=== PATIENT | female | born 1990 | race Caucasian/White ===

== ENCOUNTER 2023-04-10 06:57 | Emergency (ER) | payer BC, OTHER ==
[2023-04-10] MEDS: Ondansetron 4 MG Tab.DIS PO ONE (07:21)
[2023-04-10 07:35] LABS: BASOPHILS ABSOLUTE AUTO 0.01 K/uL (0.00-0.20); BASOPHILS PERCENT AUTO 0.1 % (0.0-2.0); EOSINOPHILS ABSOLUTE AUTO 0.02 K/uL (0.00-0.50); EOSINOPHILS PERCENT AUTO 0.2 % (0.0-5.0); HEMATOCRIT 34.4 % (34.0-46.0); HEMOGLOBIN 11.7 g/dL (11.7-15.5); LYMPHOCYTES ABSOLUTE AUTO 0.49 K/uL (0.50-3.50); LYMPHOCYTES PERCENT AUTO 4.3 % (10.0-50.0); MEAN CORPUSCULAR HEMOGLOBIN 30.2 pg (28.2-33.3); MEAN CORPUSCULAR VOLUME 88.7 fL (84.0-98.0); MONOCYTES ABSOLUTE AUTO 0.31 K/uL (0.00-1.00); MONOCYTES PERCENT AUTO 2.7 % (2.0-14.0); NEUTROPHILS ABSOLUTE AUTO 10.62 K/uL (1.40-7.00); NEUTROPHILS PERCENT AUTO 92.7 % (45.0-80.0); PLATELET COUNT,PLT 285 K/uL (150-350); RED BLOOD CELL COUNT 3.88 M/uL (3.77-5.09); RED CELL DISTRIBUTION WIDTH 12.7 % (11.2-14.1); WHITE BLOOD CELL COUNT,WBC 11.5 K/uL (4.0-10.2)
[2023-04-10 07:52] LABS: ALBUMIN 3.4 g/dL (3.4-5.0); ANION GAP 9.3 meq/L (7-15); BILIRUBIN TOTAL 0.5 mg/dL (0.2-1.0); CALCIUM 8.7 mg/dL (8.5-10.1); CARBON DIOXIDE,CO2 23.7 mmol/L (21.0-32.0); CREATININE 0.62 mg/dL (0.51-1.17); EST CRCL DRUG DOSING (CG) 133.62 mL/min; POTASSIUM,K 3.6 mmol/L (3.5-5.1); PROTEIN TOTAL,TP 7.2 g/dL (6.4-8.2)
[2023-04-10 08:15] LABS: CORONAVIRUS COVID-19 NAA NEGATIVE (NEGATIVE); INFLUENZA A NAA NEGATIVE (NEGATIVE); INFLUENZA B NAA NEGATIVE (NEGATIVE); RESPIRATORY SYNCYTIAL VIR NAA NEGATIVE (NEGATIVE)
[2023-04-10] MEDS: Ondansetron 4 MG/2 ML SDV IVPUSH ONE (08:15)
[2023-04-10] MEDS: Sodium Chloride 0.9% 10 ML Syringe FLUSH PRN (08:16)
== END 2023-04-10 08:37 | disposition home or self-care (01) ==
LOC: LL.ED 06:57
DX: O99.612 Diseases of the digestive system complicating pregnancy, second trimester (principal); A08.4 Viral intestinal infection, unspecified; Z3A.17 17 weeks gestation of pregnancy; Z79.82 Long term (current) use of aspirin; Z79.899 Other long term (current) drug therapy
CPT/HCPCS: 0241U; 36415; 80053; 85025; 96374; 99284-25; A9270-GY; J2405; J3490